=== PATIENT | female | born 1990 | race African-American/Black ===

== ENCOUNTER 2018-03-03 19:40 | Emergency (ER) | payer OTHER ==
[~2018-03-03] VITALS: Ht 170.2 cm; Wt 77.1 kg
--- NOTE | 2018-03-03 19:58 | NUR ---
BIB SELF COMPLAINING OF DIZZINESS AND BLURINESS SINCE EARLIER TODAY. PT AA/OX4. AMBULATED TO HOSPITAL BED WITH STABLE GAIT. NO N/V. SKIN'S PINK, WARM, AND DRY. NAD. VSS. PA AT BEDSIDE. AWAITING ORDERS.
[2018-03-03 20:25] LABS: CREATININE 0.8 mg/dL (0.6-1.3); POTASSIUM 3.2 mmol/L (3.5-5.1)
[2018-03-03 20:35] LABS: BASOPHILS % (AUTO) 0.1 % (0.0-2.0); EOSINOPHILS % (AUTO) 1.6 % (0.0-6.0); HEMATOCRIT 27 % (33-45); HEMOGLOBIN 8.4 g/dL (11.5-14.8); LYMPHOCYTES # (AUTO) 2.9 /CMM (0.8-4.8); LYMPHOCYTES % (AUTO) 45.9 % (20.0-44.0); MEAN CORPUSCULAR HEMOGLOBIN 22 PG (26.0-33.0); MEAN CORPUSCULAR HGB CONC 31 g/dl (31.0-36.0); MEAN CORPUSCULAR VOLUME 70 fL (82-100); MONOCYTES # (AUTO) 0.4 /CMM (0.1-1.30); MONOCYTES % (AUTO) 6.2 % (2.0-12.0); NEUTROPHILS # (AUTO) 2.9 /CMM (1.8-8.9); NEUTROPHILS % (AUTO) 46.2 % (43.0-81.0); PLATELET COUNT (AUTO) 374 /CMM (150-450); RDW COEFFICIENT OF VARIATION 29.9 (11.5-15.0); RED BLOOD CELL COUNT(AUTO) 3.83 MIL/uL (4.0-5.2); WHITE BLOOD COUNT (AUTO) 6.2 K/uL (4.3-11.0)
[2018-03-03] MEDS ORDERED: METOCLOPRAMIDE HCL 10 MG/2 ML VIAL ONE (20:48)
[2018-03-03] MEDS ORDERED: METOCLOPRAMIDE HCL 10 MG/2 ML VIAL IM SCH (21:00)
--- NOTE | 2018-03-03 21:05 | NUR ---
PT BROUGHT TO CT
[2018-03-03 21:40] VITALS: BP 134/78
--- NOTE | 2018-03-03 21:41 | NUR ---
Patient discharged to home in stable condition. Written and verbal after care instructions given. Patient verbalizes understanding of instruction. PT AMBULATED OUT WITH A STEADY GAIT. VSS. NAD NOTED. PT'S FAMILY MEMBER IS DRIVING PT HOME.
== END 2018-03-03 21:40 | disposition home or self-care (01) ==
LOC: ER 19:46
DX: R42 Dizziness and giddiness (principal); D64.9 Anemia, unspecified
CPT/HCPCS: 36415; 70450; 80048; 84703; 85025; 96372; 99285; A4606; J2765; Z7610